=== PATIENT | male | born 1975 | race Caucasian/White ===

== ENCOUNTER 2016-11-01 06:00 | Emergency (ER) | payer OTHER ==
[~2016-11-01 06:00] MED LIST: GARAMYCIN IV; LAMICTAL150 MG PO; LEXAPRO DPS10 MG PO; MINIPRESS DPS1 MG PO; OCEAN NASAL MIS45 ML NS; PROVENTIL HFA6.7 GM IH; ROCEPHIN DPS2 GM IV; TIVICAY50 MG PO; TRUVADA 200 MG1 EACH PO; ULTRAM DPS50 MG PO
--- NOTE | 2016-11-01 16:43 | ER ---
ADMIT: 11/01/2016 RM/LOC: ER [facility] MR#: [id number] [address] DENY CARLOS ALBERTO [address] [place] [address] Emergency Room Report SEX: M AGE: 41 : 1975 DATE: 11/01/2016 ADDENDUM: A 41-year-old, [place] gentleman, coming in with chest pain. He had a heart valve replaced in July, continued to have pain on and off. Initially, seen by Dr. Clark. I refer you to his T-sheet. Chest x-ray, EKG, CBC, chemistry, troponin, all negative. This is more atypical chest pain, probably more postop pain in nature. Tylenol, Motrin, and follow up as scheduled with his doctor. CONDITION ON DISCHARGE: Good. Valente Villatoro MD/ jeramy JOB #: [id number] CC: Kobe Clark MD, Attending Physician Jaswant Dowd MD, Family Physician
== END 2016-11-01 07:40 | disposition home or self-care (01) ==
LOC: ER 06:00
DX: R07.89 Other chest pain (principal); F31.9 Bipolar disorder, unspecified; I10 Essential (primary) hypertension; B20 Human immunodeficiency virus [HIV] disease; Z88.0 Allergy status to penicillin; Z79.899 Other long term (current) drug therapy

== ENCOUNTER 2017-01-08 12:21 | Emergency (ER) | payer OTHER ==
--- NOTE | 2017-01-12 08:27 | ER ---
ADMIT: 01/08/2017 RM/LOC: ER [facility] MR#: [id number] [address] CARLOS ALBERTO BARCLAY [address] [place] [address] Emergency Room Report SEX: M AGE: 41 : 1975 DATE: 01/08/2017 ADDENDUM: This 41-year-old male coming in with chest pain. He has had it since they put his bowel back in. 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 His lab, EKG, and chest x-ray, they all look good. I am discharging him home. Motrin for pain and then follow up as needed with MANDI. CONDITION ON DISCHARGE: Good. Valente Villatoro MD/ jeramy JOB #: [id number] CC: Valente Villatoro MD, Attending Physician
== END 2017-01-08 14:30 | disposition home or self-care (01) ==
LOC: ER 12:21
DX: R07.89 Other chest pain (principal); I10 Essential (primary) hypertension; F31.9 Bipolar disorder, unspecified; B20 Human immunodeficiency virus [HIV] disease; F32.9 Major depressive disorder, single episode, unspecified; Z88.0 Allergy status to penicillin; Z79.899 Other long term (current) drug therapy; Z87.891 Personal history of nicotine dependence

== ENCOUNTER → 2017-01-16 | Outpatient (CLI) | payer OTHER | END | disposition home or self-care (01) | LOC: CARD 14:00 | DX: R55 Syncope and collapse (principal) ==

== ENCOUNTER → 2017-04-30 | Outpatient (CLI) | payer OTHER | END | disposition home or self-care (01) | LOC: RAD.S 07:38 | DX: H90.41 Sensorineural hearing loss, unilateral, right ear, with unrestricted hearing on the contralateral side (principal) ==